=== PATIENT | male | born 1995 | race Two or more races ===

== ENCOUNTER 2021-01-02 02:47 | Emergency (ER) | payer OTHER ==
[~2021-01-02] VITALS: Ht 177.8 cm; Wt 95.3 kg
[2021-01-02] MEDS ORDERED: PROCHLORPERAZINE EDISYLATE 10 MG/2 ML VIAL ONE (02:59)
[2021-01-02] MEDS ORDERED: diphenhydrAMINE 50 MG/1 ML VIAL IV ONE (03:00)
[2021-01-02] MEDS ORDERED: ONDANSETRON 4 MG/2 ML VIAL IV ONE (03:00)
[2021-01-02] MEDS ORDERED: PROCHLORPERAZINE EDISYLATE 10 MG/2 ML VIAL IM ONE (03:00)
[2021-01-02] MEDS ORDERED: ONDANSETRON 4 MG/2 ML VIAL ONE (03:07)
[2021-01-02] MEDS ORDERED: diphenhydrAMINE 50 MG/1 ML VIAL ONE (03:07)
--- NOTE | 2021-01-02 03:13 | NUR ---
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 patient is more awake now and he stated that he overdosed on heroin only tonight, vomiting stopped after 10 min of medication administration.
[2021-01-02] MEDS ORDERED: ONDA4TAB5 PO (03:24)
[2021-01-02] MEDS ORDERED: NALO4SPR NS (03:24)
--- NOTE | 2021-01-02 03:46 | NUR ---
Eric (friend) . call when ready for belt picker.
[2021-01-02] MEDS ORDERED: methadone PO (06:21)
--- NOTE | 2021-01-02 07:05 | NUR ---
Handoff to Kadie, HUDSON
--- NOTE | 2021-01-02 07:30 | NUR ---
Received patient in shift report
[2021-01-02 08:10] LABS: *AMPHETAMINE, URINE NEGATIVE (NEGATIVE); *CANNABINOID, URINE NEGATIVE (NEGATIVE); *COCCAINE, URINE NEGATIVE (NEGATIVE); *OPIATE, URINE POSITIVE (NEGATIVE); *PHENCYCLIDINE SCREEN,URINE NEGATIVE (NEGATIVE)
--- NOTE | 2021-01-02 09:47 | NUR ---
Attempted to call Eric (friend) voicemail not set up at this time, unable to leave voice message at this time
--- NOTE | 2021-01-02 09:49 | NUR ---
Eric called back and states he will cotton picker patient in 15 minutes
--- NOTE | 2021-01-02 10:18 | NUR ---
Patient discharged to home in stable condition. Picked up by family member Eric. Ablee to ambulate with difficulty, no signs of aute distress. Written and verbal after care instructions given. Patient verbalizes understanding of instructions. Stressed follow up or return to ER for worsening s/s.
[2021-01-02 10:20] VITALS: BP 123/68
== END 2021-01-02 10:15 | disposition home or self-care (01) ==
LOC: ER 02:51
DX: T40.1X1A Poisoning by heroin, accidental (unintentional), initial encounter (principal); R06.89 Other abnormalities of breathing; R11.2 Nausea with vomiting, unspecified; F11.23 Opioid dependence with withdrawal; Y92.89 Other specified places as the place of occurrence of the external cause; R00.0 Tachycardia, unspecified; R94.31 Abnormal electrocardiogram [ECG] [EKG]
CPT/HCPCS: 71045 ×2; 80307; 93005; 96372; 96374; 96375; 99285; J0780; J1200; J2405; A4663